=== PATIENT | female | born 1950 | race Caucasian/White ===

== ENCOUNTER 2017-04-08 09:32 | Emergency (ER) | payer MEDICARE, OTHER ==
[2017-04-08 09:35] VITALS: BMI 25.7
[2017-04-08 09:37] VITALS: BP 137/70; PULSE 65; RESP 18; TEMP 98.7; O2SAT 99
[2017-04-08] MEDS ORDERED: Sodium Chloride 0.9% 1,000 ML IV STA (10:14)
[2017-04-08 11:01] LABS: BASO % 0.8 % (0.0-2.0); EOS # 0.2 K/uL (0.0-0.7); EOS % 2.9 % (0.0-4.0); HEMATOCRIT 39.9 % (34.0-47.0); LYMPH # 2.2 K/uL (1.0-4.3); LYMPH % 34.5 % (20.0-40.0); MEAN CELL VOLUME 81.2 fl (81.0-99.0); MEAN CORPUSCULAR HEMOGLOBIN 26.6 pg (27.0-31.0); MEAN CORPUSCULAR HGB CONC 32.7 g/dL (33.0-37.0); MEAN PLATELET VOLUME 8.9 fl (7.2-11.7); MONO # 0.4 K/uL (0.0-0.8); MONO % 6.5 % (0.0-10.0); NEUT # 3.6 K/uL (1.8-7.0); NEUT % 55.3 % (50.0-75.0); RED CELL DISTRIBUTION WIDTH 14.1 % (11.5-14.5); WHITE BLOOD COUNT 6.4 K/uL (4.8-10.8)
[2017-04-08 11:06] LABS: RBC URINE 5 /hpf (0-3); URINE BACTERIA RARE (<OCC); URINE BILIRUBIN NEGATIVE (NEGATIVE); URINE BLOOD NEGATIVE (NEGATIVE); URINE COLOR YELLOW (YELLOW); URINE GLUCOSE (UA) NEG (Normal); URINE KETONE NEGATIVE (NEGATIVE); URINE LEUKOCYTE ESTERASE SMALL Leu/uL (Negative); URINE PROTEIN NEGATIVE (NEGATIVE); URINE UROBILINOGEN 0.2-1.0 mg/dL (0.2-1.0); WBC URINE 2 /hpf (0-5)
[2017-04-08 11:17] LABS: PARTIAL THROMBOPLASTIN TIME 37.3 Seconds (25.6-37.1)
[2017-04-08 11:21] LABS: ALB/GLOB RATIO 1.3 (1.0-2.1); ALKALINE PHOSPHATASE 71 U/L (38-126); ALT/SGPT 32 U/L (9-52); AST/SGOT 21 U/L (14-36); BILIRUBIN,TOTAL 0.4 mg/dl (0.2-1.3); BLOOD UREA NITROGEN 14 mg/dl (7-17); CALCIUM 9.4 mg/dL (8.4-10.2); CARBON DIOXIDE 28 mmol/L (22-30); CHLORIDE 103 mmol/L (98-107); GFR AFRICAN-AMERICAN > 60; GLUCOSE,RANDOM 117 mg/dL (65-105); LIPASE 220 U/L (23-300); POTASSIUM 3.9 MMOL/L (3.6-5.0); SODIUM 142 mmol/l (132-148); TOTAL PROTEIN 7.8 G/DL (6.3-8.2)
--- NOTE | 2017-04-08 11:22 | ED PDOC ---
HPI: Abdomen Time Seen by Provider: 04/08/17 10:01 Chief Complaint (Nursing): Abdominal Pain Chief Complaint (Provider): abdominal pain History Per: Patient History/Exam Limitations: no limitations Onset/Duration Of Symptoms: Days (x 3) Additional Complaint(s): Margarita Frank is a 66 year old female, with a previous medical history of hypertension and diabetes, who presents to the ED with complaints of abdominal pain associated with diarrhea ongoing for 3 days. Patient denies any urinary symptoms, nausea or vomiting. PMD: none provided Past Medical History Reviewed: Historical Data, Nursing Documentation, Vital Signs Vital Signs: Last Vital Signs Temp 98.7 F 04/08/17 09:35 Pulse 65 04/08/17 09:35 Resp 18 04/08/17 09:35 BP 137/70 04/08/17 09:35 Pulse Ox 99 04/10/17 17:36 - Medical History PMH: Anxiety, Asthma, HTN Denies: Chronic Kidney Disease - Surgical History Surgical History: Cholecystectomy Other surgeries: tummy tuck - Family History Family History: States: Unknown Family Hx - Home Medications Home Medications: Ambulatory Orders Medication Instructions Recorded Famotidine [Pepcid] 20 mg PO DAILY PRN #6 tab 06/12/14 Lisinopril [Lisinopril] 20 mg PO DAILY 06/12/14 Glimepiride 1 mg PO DAILY 01/19/15 Warfarin [Coumadin] 1 mg PO DAILY 01/19/15 Ondansetron [Zofran] 4 mg PO Q8H PRN #30 tab 02/08/15 Pravastatin Sodium [Pravastatin] 20 mg PO DAILY 02/08/15 levETIRAcetam [Keppra] 500 mg PO BID 02/08/15 Dicyclomine [Bentyl] 20 mg PO QID PRN #10 tab 04/08/17 Ranitidine HCl [Zantac] 150 mg PO BID #20 tablet 04/08/17 - Allergies Allergies/Adverse Reactions: Allergies Allergy/AdvReac Type Severity Reaction Status Date / Time No Known Allergies Allergy Verified 02/08/15 16:32 Review of Systems ROS Statement: Except As Marked, All Systems Reviewed And Found Negative Gastrointestinal: Positive for: Abdominal Pain, Diarrhea. Negative for: Nausea , Vomiting, Constipation Genitourinary Female: Negative for: Dysuria, Frequency, Incontinence, Hematuria Physical Exam - Reviewed Nursing Documentation Reviewed: Yes Vital Signs Reviewed: Yes - Physical Exam Appears: Positive for: Well, Non-toxic, No Acute Distress Head Exam: Positive for: ATRAUMATIC, NORMAL INSPECTION, NORMOCEPHALIC Skin: Positive for: Normal Color, Warm, DRY Eye Exam: Positive for: EOMI, Normal appearance, PERRL ENT: Positive for: Normal ENT Inspection Neck: Positive for: Normal, Painless ROM Cardiovascular/Chest: Positive for: Regular Rate, Rhythm Respiratory: Positive for: CNT, Normal Breath Sounds Gastrointestinal/Abdominal: Positive for: Bowel Sounds, Soft, Tenderness ( bilateral upper quadrant tenderness and epigastric ). Negative for: Guarding, Rebound Back: Positive for: Normal Inspection Extremity: Positive for: Normal ROM Neurologic/Psych: Positive for: Alert, Oriented - Laboratory Results Result Diagrams: 04/08/17 10:29 04/08/17 10:29 - ECG O2 Sat by Pulse Oximetry: 99 (RA) Pulse Ox Interpretation: Normal - Physician Consult Information Physician Contacted: Hudson Wong Outcome Of Conversation: Labs and imaging findings discussed, agrees with discharge home, Rx Protonix or Zantac. Medical Decision Making Medical Decision Making: Initial Impression: abdominal pain Initial Plan: * CT abd & pelvis w/ IV contrast * lipase * labs * urine dipstick * IV NS 1,000 ml at 100 ml/hr * reevaluation Accession No. : [id number] Patient Name / ID : KELLEY DENTON / [id number] Exam Date : 04/08/2017 12:12:45 ( Approved ) Study Comment : Sex / Age : F / 66Y Creator : Teddy Medeiros MD Dictator : Teddy Medeiros MD Foreign Languages Professor : Centerpuncher : Teddy Medeiros MD Approver2 : Report Date : 04/08/2017 13:09:24 My Comment : PROCEDURE: CT Abdomen and Pelvis with contrast HISTORY: BUQ pain COMPARISON: None. TECHNIQUE: Contrast dose: 95 mL Omnipaque 300 Radiation dose: Total exam DLP = 653.04 mGy-cm. This CT exam was performed using one or more of the following dose reduction techniques: Automated exposure control, adjustment of the mA and/or kV according to patient size, and/or use of iterative reconstruction technique. FINDINGS: LOWER THORAX: Unremarkable. LIVER: Normal size, contour and attenuation. There is an irregularly-shaped mass with nodular peripheral and central enhancement measuring approximately 1.6 x 2.8 by 3.1 cm. This is seen in the superior right hepatic lobe, just beneath the dome. On examination of 02/08/2015 this mass measured approximately 1.8 x 3.0 by 3.0 cm , with similar pattern of enhancement. There has been no interval change in size or morphology since the prior CT examination. Its appearance on this examination is nonspecific. This may represent a hemangioma though the nodular central enhancement is slightly atypical. No other hepatic mass is identified. There is no biliary dilatation. GALLBLADDER AND BILE DUCTS: Status post cholecystectomy PANCREAS: Unremarkable. No gross lesion or ductal dilatation. SPLEEN: From 02/08/2015. Unremarkable. ADRENALS: Unremarkable. No mass. KIDNEYS AND URETERS: Unremarkable. No hydronephrosis. No solid mass. VASCULATURE: No aortic aneurysm. Mild atheromatous narrowing of the origin of the celiac axis. The SMA and renal arteries are widely patent. The ANGY is widely patent. BOWEL: No abnormal bowel. No bowel obstruction. Stomach is not distended but grossly unremarkable. APPENDIX: Normal appendix. PERITONEUM: Unremarkable. No free fluid. No free air. LYMPH NODES: Unremarkable. No enlarged lymph nodes. BLADDER: Unremarkable. REPRODUCTIVE: Normal uterus. Small cysts in each ovary, 9 mm on the right 11 mm on the left. Consider correlation with transvaginal ultrasound examination in this postmenopausal woman. BONES: No acute fracture. OTHER FINDINGS: None. IMPRESSION: No acute abnormality. Status post cholecystectomy. 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 Small cyst in each ovary as described. Consider correlation with transvaginal pelvic ultrasound examination in this postmenopausal woman. No other significant abnormality. Accession No. : [id number] Patient Name / ID : KELLEY DENTON / [id number] Exam Date : 04/08/2017 13:28:42 ( Approved ) Study Comment : Sex / Age : F / 66Y Creator : Teddy Medeiros MD Dictator : Teddy Medeiros MD Foreign Languages Professor : Centerpuncher : Teddy Medeiros MD Approver2 : Report Date : 04/08/2017 14:22:11 My Comment : HISTORY: Postmenopausal ovarian cyst COMPARISON: None available. TECHNIQUE: Transvaginal FINDINGS: UTERUS: Measures 5.4 x 2.3 x 3.6 cm. The uterus is anteverted. No fibroid or other mass lesion seen. ENDOMETRIUM: Measures 2 mm in diameter. Unremarkable. CERVIX: No cervical abnormality identified. RIGHT OVARY: Not visualized LEFT OVARY: Not visualized FREE FLUID: No significant free fluid noted. OTHER FINDINGS: None. IMPRESSION: Unremarkable uterus. Ovaries not visualized. Scribe Attestation: Documented by Nita Brizuela, acting as a scribe for Nita Augustin MD. Provider Scribe Attestation: All medical record entries made by the Scribe were at my direction and personally dictated by me. I have reviewed the chart and agree that the record accurately reflects my personal performance of the history, physical exam, medical decision making, and the department course for this patient. I have also personally directed, reviewed, and agree with the discharge instructions and disposition. Disposition - Clinical Impression Clinical Impression: Abdominal pain in female - Disposition Referrals: Hudson Wong MD [Staff Provider] - Disposition: Routine/Home Disposition Time: 15:39 Condition: STABLE Prescriptions: Dicyclomine [Bentyl] 20 mg PO QID PRN #10 tab PRN Reason: Pain, Moderate (4-7) Ranitidine HCl [Zantac] 150 mg PO BID #20 tablet Instructions: Abdominal Pain (ED) Forms: [facility] [employer] (Greek) Print Language: TRISTANIAN
[2017-04-08] MEDS ORDERED: Iohexol 300 100 ML IJ ONE (12:11)
[2017-04-08] MEDS ORDERED: Sodium Chloride 0.9% 50 ML IV ONE (12:11)
--- NOTE | 2017-04-08 13:11 | CT ---
PROCEDURE: CT Abdomen and Pelvis with contrast HISTORY: BUQ pain COMPARISON: None. TECHNIQUE: Contrast dose: 95 mL Omnipaque 300 Radiation dose: Total exam DLP = 653.04 mGy-cm. This CT exam was performed using one or more of the following dose reduction techniques: Automated exposure control, adjustment of the mA and/or kV according to patient size, and/or use of iterative reconstruction technique. FINDINGS: LOWER THORAX: Unremarkable. LIVER: Normal size, contour and attenuation. There is an irregularly-shaped mass with nodular peripheral and central enhancement measuring approximately 1.6 x 2.8 by 3.1 cm. This is seen in the superior right hepatic lobe, just beneath the dome. On examination of 02/08/2015 this mass measured approximately 1.8 x 3.0 by 3.0 cm, with similar pattern of enhancement. There has been no interval change in size or morphology since the prior CT examination. Its appearance on this examination is nonspecific. This may represent a hemangioma though the nodular central enhancement is slightly atypical. No other hepatic mass is identified. There is no biliary dilatation. GALLBLADDER AND BILE DUCTS: Status post cholecystectomy PANCREAS: Unremarkable. No gross lesion or ductal dilatation. SPLEEN: From 02/08/2015. Unremarkable. ADRENALS: Unremarkable. No mass. KIDNEYS AND URETERS: Unremarkable. No hydronephrosis. No solid mass. VASCULATURE: No aortic aneurysm. Mild atheromatous narrowing of the origin of the celiac axis. The SMA and renal arteries are widely patent. The ANGY is widely patent. BOWEL: No abnormal bowel. No bowel obstruction. Stomach is not distended but grossly unremarkable. APPENDIX: Normal appendix. PERITONEUM: Unremarkable. No free fluid. No free air. LYMPH NODES: Unremarkable. No enlarged lymph nodes. BLADDER: Unremarkable. REPRODUCTIVE: Normal uterus. Small cysts in each ovary, 9 mm on the right 11 mm on the left. Consider correlation with transvaginal ultrasound examination in this postmenopausal woman. BONES: No acute fracture. OTHER FINDINGS: None. IMPRESSION: No acute abnormality. Status post cholecystectomy. 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 Small cyst in each ovary as described. Consider correlation with transvaginal pelvic ultrasound examination in this postmenopausal woman. No other significant abnormality.
--- NOTE | 2017-04-08 14:23 | US ---
HISTORY: Postmenopausal ovarian cyst COMPARISON: None available. TECHNIQUE: Transvaginal FINDINGS: UTERUS: Measures 5.4 x 2.3 x 3.6 cm. The uterus is anteverted. No fibroid or other mass lesion seen. ENDOMETRIUM: Measures 2 mm in diameter. Unremarkable. CERVIX: No cervical abnormality identified. RIGHT OVARY: Not visualized LEFT OVARY: Not visualized FREE FLUID: No significant free fluid noted. OTHER FINDINGS: None. IMPRESSION: Unremarkable uterus. Ovaries not visualized.
--- NOTE | 2017-04-09 08:26 | CARD ---
APPROVED REPORT EKG Measurement Heart [id number] <Conclusion> Normal sinus rhythm Low voltage QRS Borderline ECG
== END 2017-04-08 16:05 | disposition home or self-care (01) ==
LOC: H.ER 09:32
DX: R10.9 Unspecified abdominal pain (principal); N83.201 Unspecified ovarian cyst, right side; N83.202 Unspecified ovarian cyst, left side; Z78.0 Asymptomatic menopausal state; F41.9 Anxiety disorder, unspecified; I10 Essential (primary) hypertension; J45.909 Unspecified asthma, uncomplicated; Z90.49 Acquired absence of other specified parts of digestive tract
CPT/HCPCS: 74177; 76830; 80053; 81003; 83690; 85025; 85610; 85730; 93005; 99283; J7040; Q9967

== ENCOUNTER 2017-09-01 13:40 | Emergency (ER) | payer MEDICARE, OTHER ==
[2017-09-01 13:40] VITALS: BMI 25.7
[2017-09-01 13:49] VITALS: BP 136/80; PULSE 77; RESP 16; TEMP 98.2; O2SAT 96
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
--- NOTE | 2017-09-01 15:38 | CT ---
PROCEDURE: CT HEAD WITHOUT CONTRAST. HISTORY: s/p fall COMPARISON: CT angiography study 06/11/2015, CT head without contrast 01/19/2015 TECHNIQUE: Axial computed tomography images were obtained through the head/brain without intravenous contrast. Radiation dose: Total exam DLP = 816 mGy-cm. This CT exam was performed using one or more of the following dose reduction techniques: Automated exposure control, adjustment of the mA and/or kV according to patient size, and/or use of iterative reconstruction technique. FINDINGS: HEMORRHAGE: No interval intracranial hemorrhage. BRAIN: No interval mass effect or edema. The right temporal parietal hypodensity without mass effect is compatible with chronic encephalomalacia changes given the serial changes noted with earlier studies. No interval contiguous current extra-axial blood here appreciated VENTRICLES: Unremarkable. No hydrocephalus. CALVARIUM: The right sub occipital/occipital craniectomy and cranioplasty changes are similar PARANASAL SINUSES: The right frontal air cell opacification is unchanged since 06/11/2015 fairly retention cyst is a consideration. No expansion of the regional osseous anatomy here noted. MASTOID AIR CELLS: Unremarkable as visualized. No inflammatory changes. OTHER FINDINGS: None. IMPRESSION: No interval hemorrhage or mass effect. Right sided postsurgical changes. Stable right sided encephalomalacia changes.
== END 2017-09-01 16:14 | disposition home or self-care (01) ==
LOC: H.ER 13:40
DX: S09.90XA Unspecified injury of head, initial encounter (principal); W22.8XXA Striking against or struck by other objects, initial encounter; Y92.89 Other specified places as the place of occurrence of the external cause; E11.9 Type 2 diabetes mellitus without complications; I10 Essential (primary) hypertension; Z79.01 Long term (current) use of anticoagulants

== ENCOUNTER 2017-10-17 11:58 | Emergency (ER) | payer MEDICARE, OTHER ==
[2017-10-17 11:58] VITALS: BMI 25.7
[2017-10-17] MEDS ORDERED: Sodium Chloride 0.9% 1,000 ML IV STA (13:19)
[2017-10-17 13:48] LABS: BASO # 0.1 K/uL (0.0-0.2); BASO % 1.2 % (0.0-2.0); EOS # 0.2 K/uL (0.0-0.7); EOS % 2.4 % (0.0-4.0); HEMOGLOBIN 13.5 g/dL (12.0-16.0); MEAN CELL VOLUME 82.5 fl (81.0-99.0); MEAN CORPUSCULAR HEMOGLOBIN 26.8 pg (27.0-31.0); MEAN CORPUSCULAR HGB CONC 32.5 g/dL (33.0-37.0); MEAN PLATELET VOLUME 8.9 fl (7.2-11.7); MONO # 0.4 K/uL (0.0-0.8); NEUT # 3.7 K/uL (1.8-7.0); NEUT % 58.4 % (50.0-75.0); NRBC % 0.1 % (0.0-0.0); RBC 5.04 Mil/uL (3.80-5.20); RED CELL DISTRIBUTION WIDTH 14.2 % (11.5-14.5); WHITE BLOOD COUNT 6.3 K/uL (4.8-10.8)
[2017-10-17 13:57] LABS: INR 2.7 (0.9-1.2); PARTIAL THROMBOPLASTIN TIME 46.2 Seconds (25.6-37.1); PROTHROMBIN TIME 30.1 Seconds (9.8-13.1)
[2017-10-17 14:00] LABS: BLOOD UREA NITROGEN 17 mg/dl (7-17); GFR AFRICAN-AMERICAN > 60; GFR NON-AFRICAN AMERICAN > 60
[2017-10-17 14:01] LABS: ALB/GLOB RATIO 1.1 (1.0-2.1); ALBUMIN 4.1 g/dL (3.5-5.0); ALT/SGPT 42 U/L (9-52); AST/SGOT 20 U/L (14-36); LIPASE 218 U/L (23-300)
--- NOTE | 2017-10-17 14:31 | CT ---
PROCEDURE: CT HEAD WITHOUT CONTRAST. HISTORY: Right right sided headache hx of brain tumor/GUARD CHIEF COMPARISON: 09/01/2017. TECHNIQUE: Axial computed tomography images were obtained through the head/brain without intravenous contrast. Radiation dose: Total exam DLP = 652.22 mGy-cm. This CT exam was performed using one or more of the following dose reduction techniques: Automated exposure control, adjustment of the mA and/or kV according to patient size, and/or use of iterative reconstruction technique. FINDINGS: HEMORRHAGE: No intracranial hemorrhage. BRAIN: There is redemonstration of focal cystic encephalomalacia in the right temporoparietal lobe. Bland-white matter differentiation is preserved. There is no mass, mass effect or abnormal extra-axial fluid collection. There is no territorial infarction. VENTRICLES: The ventricles are normal in size, shape and configuration. CALVARIUM: Status post right occipital craniectomy and cranioplasty. PARANASAL SINUSES: There is complete opacification of the right frontal sinus and mild mucosal thickening in the ethmoid air cells. There is polypoid mucosal thickening in the mid left maxillary sinus and aerosolized secretions in the right maxillary and sphenoid sinuses. MASTOID AIR CELLS: Predominantly clear. OTHER FINDINGS: None. IMPRESSION: No acute intracranial abnormality. Status post right occipital craniectomy and cranioplasty. Stable appearance of focal encephalomalacia in the right parieto-occipital lobe. Chronic pansinusitis, aerosolized secretions in the right maxillary and sphenoid sinus may represent superimposed acute sinusitis in the appropriate clinical setting.
--- NOTE | 2017-10-17 15:52 | ED PDOC ---
HPI: Headache Time Seen by Provider: 10/17/17 12:31 Chief Complaint (Nursing): Headache Chief Complaint (Provider): Headache History Per: Patient Onset/Duration Of Symptoms: Days (x4 days) Current Symptoms Are (Timing): Still Present Associated Symptoms: denies: Photophobia, Vomiting, Extremity Weakness Additional Complaint(s): 66 y/o female presents to the ED complaining of sinus headache x 4 days. Reports that headache is constant and is mostly on the right side of her face. Patient is also complaining of epigastric pain everytime she eats. Reports history of brain tumor many years ago that was removed and had craniotomy. 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 Denies fever, vomiting, diarrhea, photophobia, numbness, weakness or any further medical complaints. PMD: MD Judith Past Medical History Reviewed: Historical Data, Nursing Documentation, Vital Signs Vital Signs: Last Vital Signs Temp 98.6 F 10/17/17 12:16 Pulse 71 10/17/17 12:16 Resp 17 10/17/17 12:16 BP 139/79 10/17/17 12:16 Pulse Ox 96 10/17/17 12:16 - Medical History PMH: Anxiety, Asthma, Diabetes, Gastritis, HTN Denies: Chronic Kidney Disease - Surgical History Surgical History: Cholecystectomy - Family History Family History: States: Unknown Family Hx - Social History Current smoker - smoking cessation education provided: No (Never Smoked) Alcohol: None Drugs: Denies - Home Medications Home Medications: Ambulatory Orders Medication Instructions Recorded Famotidine [Pepcid] 20 mg PO DAILY PRN #6 tab 06/12/14 Lisinopril [Lisinopril] 20 mg PO DAILY 06/12/14 Glimepiride 1 mg PO DAILY 01/19/15 Warfarin [Coumadin] 1 mg PO DAILY 01/19/15 Ondansetron [Zofran] 4 mg PO Q8H PRN #30 tab 02/08/15 Pravastatin Sodium [Pravastatin] 20 mg PO DAILY 02/08/15 levETIRAcetam [Keppra] 500 mg PO BID 02/08/15 Dicyclomine [Bentyl] 20 mg PO QID PRN #10 tab 04/08/17 Ranitidine HCl [Zantac] 150 mg PO BID #20 tablet 04/08/17 Amoxicillin/Clavulanate [Augmentin 1 tab PO BID #20 tab 10/17/17 875 MG-125 MG] - Allergies Allergies/Adverse Reactions: Allergies Allergy/AdvReac Type Severity Reaction Status Date / Time No Known Allergies Allergy Verified 09/01/17 13:43 Review of Systems ROS Statement: Except As Marked, All Systems Reviewed And Found Negative (As per HPI, otherwise negative) Constitutional: Negative for: Fever Eyes: Negative for: Other (Photophobia) Gastrointestinal: Positive for: Abdominal Pain (Epigastric pain). Negative for : Vomiting, Diarrhea Neurological: Positive for: Headache. Negative for: Weakness, Numbness Physical Exam - Reviewed Nursing Documentation Reviewed: Yes Vital Signs Reviewed: Yes - Physical Exam Appears: Positive for: Non-toxic, No Acute Distress Head Exam: Positive for: ATRAUMATIC, NORMAL INSPECTION, NORMOCEPHALIC Skin: Positive for: Normal Color, Warm, Dry Eye Exam: Positive for: EOMI, Normal appearance, PERRL ENT: Positive for: Normal ENT Inspection Neck: Positive for: Normal, Painless ROM, Supple Cardiovascular/Chest: Positive for: Regular Rate, Rhythm. Negative for: Murmur Respiratory: Positive for: Normal Breath Sounds. Negative for: Accessory Muscle Use, Respiratory Distress Gastrointestinal/Abdominal: Positive for: Normal Exam, Soft. Negative for: Tenderness Back: Positive for: Normal Inspection Extremity: Positive for: Normal ROM. 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 Negative for: Motor/Sensory Deficits - Laboratory Results Result Diagrams: 10/17/17 13:29 10/17/17 13:29 - ECG O2 Sat by Pulse Oximetry: 96 (RA) Pulse Ox Interpretation: Normal - Progress Re-evaluation Time: 16:10 Condition: Re-examined, Improved Medical Decision Making Medical Decision Making: Time: 13:18 Initial Impression: Headache and abdominal pain Differential diagnosis: Intracranial bleeding, brain tumor, acute sinusitis, unlikely sinus thrombosis since patient is on coumadin; pancreatitis, gastritis Plan: CT head w/o contrast CMP Lipase CBC w/ differential ESR PTT Prothrombin Time Sodium chloride 1L IV Reglan 10mg IVP Toradol 15mg IVP Reevaluation Time: 14:[address] FINDINGS: HEMORRHAGE: No intracranial hemorrhage. BRAIN: There is redemonstration of focal cystic encephalomalacia in the right temporoparietal lobe. Bland-white matter differentiation is preserved. There is no mass, mass effect or abnormal extra-axial fluid collection. There is no territorial infarction. VENTRICLES: The ventricles are normal in size, shape and configuration. CALVARIUM: Status post right occipital craniectomy and cranioplasty. PARANASAL SINUSES: There is complete opacification of the right frontal sinus and mild mucosal thickening in the ethmoid air cells. There is polypoid mucosal thickening in the mid left maxillary sinus and aerosolized secretions in the right maxillary and sphenoid sinuses. MASTOID AIR CELLS: Predominantly clear. OTHER FINDINGS: None. IMPRESSION: No acute intracranial abnormality. Status post right occipital craniectomy and cranioplasty. Stable appearance of focal encephalomalacia in the right parieto-occipital lobe. Chronic pansinusitis, aerosolized secretions in the right maxillary and sphenoid sinus may represent superimposed acute sinusitis in the appropriate clinical setting. [address] Case was discussed with Dr. Keane and agrees that patient most likely has acute sinusitis. --Dr. Keane asked to follow up with him as an out patient for further treatment. Scribe Attestation: Documented by Loebardo Ken acting as a scribe for Will Johnston MD. Scribe Attestation: All medical record entries made by the Scribe were at my direction and personally dictated by me. I have reviewed the chart and agree that the record accurately reflects my personal performance of the history, physical exam, medical decision making, and the department course for this patient. I have also personally directed, reviewed, and agree with the discharge instructions and disposition. Disposition - Clinical Impression Clinical Impression: Acute headache, Sinusitis, acute - Patient ED Disposition Is Patient to be Admitted: No Doctor Will See Patient In The: Office Counseled Patient/Family Regarding: Studies Performed, Diagnosis, Need For Followup - Disposition Referrals: Hardeep Keane MD [Medical Doctor] - Disposition: Routine/Home Disposition Time: 16:10 Condition: GOOD Additional Instructions: Take your medications as instructed. Take tylenol and sudafed for sinus pain. Follow up with your PCP in 2-3 days. Prescriptions: Amoxicillin/Clavulanate [Augmentin 875 MG-125 MG] 1 tab PO BID #20 tab Instructions: Sinusitis in Adults, Acute Headache (ED) Forms: [employer] (Rwandan)
[2017-10-17 15:59] VITALS: BP 129/73; PULSE 76; RESP 18; TEMP 98
[2017-10-17 16:04] VITALS: O2SAT 96
== END 2017-10-17 16:51 | disposition home or self-care (01) ==
LOC: H.ER 11:58
DX: R51 Headache (principal); J01.90 Acute sinusitis, unspecified; E11.9 Type 2 diabetes mellitus without complications; I10 Essential (primary) hypertension; Z79.01 Long term (current) use of anticoagulants
CPT/HCPCS: 70450; 80053; 83690; 85025; 85610; 85651; 85730; 96374; 96375; 99285; J1885; J2765; J7040

== ENCOUNTER 2018-03-13 01:16 | Emergency (ER) | payer MEDICARE, OTHER ==
[2018-03-13 01:57] VITALS: BMI 24.8
[2018-03-13 02:03] VITALS: O2SAT 98
[2018-03-13] MEDS ORDERED: Iohexol 240 (50 ml) PO ONE (02:39)
[2018-03-13] MEDS ORDERED: Morphine 4 MG/ML VIAL IVP STA (02:39)
--- NOTE | 2018-03-13 02:44 | ED PDOC ---
HPI: Abdomen Time Seen by Provider: 03/13/18 02:02 Chief Complaint (Nursing): Abdominal Pain Chief Complaint (Provider): Abdominal Pain History Per: Patient History/Exam Limitations: no limitations Onset/Duration Of Symptoms: Hrs (x7) Current Symptoms Are (Timing): Still Present Location Of Pain/Discomfort: Diffuse Associated Symptoms: Back Pain (lower). denies: Fever, Nausea, Vomiting, Diarrhea, Urinary Symptoms Additional Complaint(s): 67 year old female presents to the ED complaining of constant diffuse abdominal pain radiating to the lower back since 21:00. Patient denies fever, nausea, diarrhea, vomiting, bloody stool, and urinary problems. PMD: Dr. Wong Past Medical History Reviewed: Historical Data, Nursing Documentation, Vital Signs Vital Signs: Last Vital Signs Temp 98 F 03/13/18 12:50 Pulse 78 03/13/18 12:50 Resp 20 03/13/18 12:50 BP 150/80 03/13/18 12:50 Pulse Ox 98 03/13/18 12:50 - Medical History PMH: Anxiety, Asthma, Diabetes, Gastritis, HTN Denies: Chronic Kidney Disease Other PMH: CVST - Surgical History Surgical History: Cholecystectomy - Family History Family History: States: Unknown Family Hx - Home Medications Home Medications: Ambulatory Orders Medication Instructions Recorded Famotidine [Pepcid] 20 mg PO DAILY PRN #6 tab 06/12/14 Lisinopril [Lisinopril] 20 mg PO DAILY 06/12/14 Glimepiride 1 mg PO DAILY 01/19/15 Warfarin [Coumadin] 1 mg PO DAILY 01/19/15 Ondansetron [Zofran] 4 mg PO Q8H PRN #30 tab 02/08/15 Pravastatin Sodium [Pravastatin] 20 mg PO DAILY 02/08/15 levETIRAcetam [Keppra] 500 mg PO BID 02/08/15 Dicyclomine [Bentyl] 20 mg PO QID PRN #10 tab 04/08/17 Ranitidine HCl [Zantac] 150 mg PO BID #20 tablet 04/08/17 Amoxicillin/Clavulanate [Augmentin 1 tab PO BID #20 tab 10/17/17 875 MG-125 MG] - Allergies Allergies/Adverse Reactions: Allergies Allergy/AdvReac Type Severity Reaction Status Date / Time No Known Allergies Allergy Verified 03/13/18 01:56 Review of Systems ROS Statement: Except As Marked, All Systems Reviewed And Found Negative Constitutional: Negative for: Fever Gastrointestinal: Positive for: Abdominal Pain (diffuse). Negative for: Nausea , Vomiting, Diarrhea, Hematemesis Genitourinary Female: Negative for: Dysuria, Hematuria, Vaginal Discharge, Vaginal Bleeding Musculoskeletal: Positive for: Back Pain (lower) Physical Exam - Reviewed Nursing Documentation Reviewed: Yes Vital Signs Reviewed: Yes - Physical Exam Appears: Positive for: No Acute Distress, Uncomfortable Head Exam: Positive for: ATRAUMATIC, NORMOCEPHALIC Skin: Positive for: Normal Color, Warm, Dry Eye Exam: Positive for: Normal appearance Neck: Positive for: Normal, Painless ROM Cardiovascular/Chest: Positive for: Regular Rate, Rhythm. Negative for: Murmur Respiratory: Positive for: Normal Breath Sounds. Negative for: Wheezing, Respiratory Distress Gastrointestinal/Abdominal: Positive for: Tenderness (Mild diffuse tenderness). Negative for: Distended, Hernia Extremity: Positive for: Normal ROM Neurologic/Psych: Positive for: Alert, Oriented (x3). Negative for: Motor/ Sensory Deficits - Laboratory Results Result Diagrams: 03/13/18 02:50 03/13/18 02:50 - ECG O2 Sat by Pulse Oximetry: 98 (RA) Pulse Ox Interpretation: Normal - Progress Re-evaluation Time: 12:45 Condition: Re-examined, Improved Medical Decision Making Medical Decision Making: Initial Impression: Diffuse abdominal pain Differential includes acute gastritis, pancreatitis, small bowel obstruction, appendicitis, mesenteric ischemia, UTI, colitis Initial Plan: --VBG shock panel --CT abd/pelvis --ECG --CMP --Lipase --Troponin --ED urine dipstick --CBC --Morphine 4mg IV --Iohexol 50mL PO 06:05 CT abd/pelvis FINDINGS: Lung bases: Intact. No mass. No consolidation. ABDOMEN: Liver: Irregular hepatic hypodensity with central and peripheral nodular enhancement in the right lobe of the liver underneath the dome measuring approximately 2.0 x 2.6 cm on axial series 2 image 1 similar to the previous exam. Hepatic hypodensity from fatty infiltrates. Gallbladder and bile ducts: Cholecystectomy. No ductal dilation. Pancreas: No mass. No ductal dilation. Spleen: No splenomegaly. Adrenals: No mass. Kidneys and ureters: No solid mass. No hydronephrosis. Stomach and bowel: No obstruction. No mucosal thickening. PELVIS: Appendix: No findings to suggest acute appendicitis. Bladder: No mass. Reproductive: Stable bilateral ovarian cysts, 1 cm the right and 1.3 cm on the left. Uterus midline. ABDOMEN and PELVIS: Intraperitoneal space: No free air. No significant fluid collection. Bones/joints: No acute fracture. No dislocation. Soft tissues: No radiopaque foreign body. Vasculature: No aortic aneurysm. Lymph nodes: No enlarged lymph nodes. IMPRESSION: 1. No acute inflammatory changes in abdomen or pelvis. 2. Stable hepatic lesion likely hemangioma. 3. Stable bilateral small ovarian cysts. Scribe Attestation: Documented by Francisco Shea acting as a scribe for Will Johnston MD. Provider Scribe Attestation: All medical record entries made by the Scribe were at my direction and personally dictated by me. I have reviewed the chart and agree that the record accurately reflects my personal performance of the history, physical exam, medical decision making, and the department course for this patient. I have also personally directed, reviewed, and agree with the discharge instructions and disposition. Disposition - Clinical Impression Clinical Impression: Abdominal pain, Back pain - Patient ED Disposition Is Patient to be Admitted: No Doctor Will See Patient In The: Office Counseled Patient/Family Regarding: Studies Performed, Diagnosis - Disposition Referrals: [facility] [Outside] Disposition: Routine/Home Disposition Time: 12:50 Condition: GOOD Additional Instructions: BERTIN BENSON, thank you for letting us take care of you today. Your provider was Will Johnston MD and you were treated for ABD PAIN/BACK PAIN. The emergency medical care you received today was directed at your acute symptoms. If you were prescribed any medication, please fill it and take as directed. It may take several days for your symptoms to resolve. Return to the Emergency Department if your symptoms worsen, do not improve, or if you have any other problems. Please contact your doctor or call one of the physicians/clinics you have been referred to that are listed on the Patient Visit Information form that is included in your discharge packet. Bring any paperwork you were given at discharge with you along with any medications you are taking to your follow up visit. Our treatment cannot replace ongoing medical care by a primary care provider outside of the emergency department. Thank you for allowing the [facility] team to be part of your care today. If you had an X-Ray or CT scan: A Radiologist will review the ED reading if any change in treatment is needed we will contact you. If you had a blood, urine, or wound culture: It will take several days for the results, if any change in treatment is needed we will contact you. If you had an STI test: It will take 48 hours for the results. Please call after 1 week if you have not heard back. Instructions: Low Back Pain in Adults, Stomach Ache and Stomach Upset Print Language: [id number]
[2018-03-13] MEDS ORDERED: Iohexol 240 (50 ml) ONE (02:51)
[2018-03-13] MEDS ORDERED: Morphine 4 MG/ML VIAL ONE (02:51)
[2018-03-13 03:06] LABS: VENOUS BLOOD GAS PCO2 48 mmHg (40-60); VENOUS BLOOD GAS PO2 26 mm/Hg (30-55)
[2018-03-13 03:07] LABS: BASO # 0.1 K/uL (0.0-0.2); BASO % 0.9 % (0.0-2.0); EOS # 0.2 K/uL (0.0-0.7); EOS % 3.4 % (0.0-4.0); HEMOGLOBIN 12.9 g/dL (12.0-16.0); LYMPH # 2.2 K/uL (1.0-4.3); LYMPH % 35.5 % (20.0-40.0); MEAN CELL VOLUME 80.5 fl (81.0-99.0); MEAN CORPUSCULAR HGB CONC 33.5 g/dL (33.0-37.0); MEAN PLATELET VOLUME 8.8 fl (7.2-11.7); MONO # 0.4 K/uL (0.0-0.8); MONO % 6.6 % (0.0-10.0); NEUT # 3.3 K/uL (1.8-7.0); NEUT % 53.6 % (50.0-75.0); RBC 4.76 Mil/uL (3.80-5.20); RED CELL DISTRIBUTION WIDTH 13.9 % (11.5-14.5); WHITE BLOOD COUNT 6.2 K/uL (4.8-10.8)
[2018-03-13 03:14] LABS: INR 2.4
[2018-03-13 03:17] LABS: ALB/GLOB RATIO 1.2 (1.0-2.1); ALBUMIN 4.1 g/dL (3.5-5.0); ALT/SGPT 33 U/L (9-52); AST/SGOT 21 U/L (14-36); BLOOD UREA NITROGEN 13 mg/dl (7-17); CALCIUM 9.9 mg/dL (8.4-10.2); GFR NON-AFRICAN AMERICAN > 60; LIPASE 245 U/L (23-300); PARTIAL THROMBOPLASTIN TIME 43.1 Seconds (25.6-37.1)
[2018-03-13] MEDS ORDERED: Iohexol 300 100 ML IJ ONE (05:04)
[2018-03-13] MEDS ORDERED: Sodium Chloride 0.9% 50 ML IV ONE (05:04)
--- NOTE | 2018-03-13 06:06 | CT ---
EXAM: CT Abdomen and Pelvis With Intravenous Contrast CLINICAL HISTORY: 67 years old, female; Pain; Abdominal pain TECHNIQUE: Axial computed tomography images of the abdomen and pelvis with intravenous contrast. All CT scans at this facility use at least one of these dose optimization techniques: automated exposure control; mA and/or kV adjustment per patient size (includes targeted exams where dose is matched to clinical indication); or iterative reconstruction. Coronal and sagittal reformatted images were created and reviewed. CONTRAST: 95 mL of OMNIPAQUE-300 administered intravenously. COMPARISON: CT ABD PELVIS IV CONTRAST ONLY 04/08/2017 12:12 PM FINDINGS: Lung bases: Intact. No mass. No consolidation. ABDOMEN: Liver: Irregular hepatic hypodensity with central and peripheral nodular enhancement in the right lobe of the liver underneath the dome measuring approximately 2.0 x 2.6 cm on axial series 2 image 1 similar to the previous exam. Hepatic hypodensity from fatty infiltrates. Gallbladder and bile ducts: Cholecystectomy. No ductal dilation. Pancreas: No mass. No ductal dilation. Spleen: No splenomegaly. Adrenals: No mass. Kidneys and ureters: No solid mass. No hydronephrosis. Stomach and bowel: No obstruction. No mucosal thickening. PELVIS: Appendix: No findings to suggest acute appendicitis. Bladder: No mass. Reproductive: Stable bilateral ovarian cysts, 1 cm the right and 1.3 cm on the left. Uterus midline. ABDOMEN and PELVIS: Intraperitoneal space: No free air. No significant fluid collection. Bones/joints: No acute fracture. No dislocation. Soft tissues: No radiopaque foreign body. Vasculature: No aortic aneurysm. Lymph nodes: No enlarged lymph nodes. IMPRESSION: 1. No acute inflammatory changes in abdomen or pelvis. 2. Stable hepatic lesion likely hemangioma. 3. Stable bilateral small ovarian cysts.
--- NOTE | 2018-03-13 12:08 | CARD ---
APPROVED REPORT Date of service: 03/13/2018 EKG Measurement Heart [id number] <Conclusion> Sinus bradycardia Nonspecific T wave abnormality Abnormal ECG
[2018-03-13 12:51] VITALS: BP 150/80; PULSE 78; RESP 20; TEMP 98
== END 2018-03-13 07:01 | disposition home or self-care (01) ==
LOC: H.ER 01:16
DX: R10.9 Unspecified abdominal pain (principal); M54.5 Low back pain; K76.0 Fatty (change of) liver, not elsewhere classified; N83.201 Unspecified ovarian cyst, right side; N83.202 Unspecified ovarian cyst, left side; E11.9 Type 2 diabetes mellitus without complications; I10 Essential (primary) hypertension; Z79.01 Long term (current) use of anticoagulants
CPT/HCPCS: 74177; 80053; 82803; 83690; 84484; 85025; 85610; 85730; 93005; 96374; 99282; J1885; Q9966; Q9967

== ENCOUNTER 2018-11-13 02:38 | Emergency (ER) | payer OTHER ==
[2018-11-13 02:39] VITALS: BMI 24.8
--- NOTE | 2018-11-13 03:20 | ED PDOC ---
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 Patient states that she is vigilant about taking her blood pressure, states she took her blood pressure as a routine measure and saw that her systolitc was above 170, states she became dizzy and then came to the E.D. for further evaluation. Denies headache, chest pain, shortenss of breath, abdominal pain, or any other symptoms currently. Patient states she feels well. PMD: Dr. oWng Past Medical History Reviewed: Historical Data, Nursing Documentation Vital Signs: Last Vital Signs Temp 98.3 F 11/13/18 02:44 Pulse 72 11/13/18 02:44 Resp 16 11/13/18 02:44 BP 144/82 11/13/18 02:44 Pulse Ox 98 11/13/18 02:44 Primary Care Provider: Hudson Wong - Medical History PMH: Anxiety, Asthma, Diabetes, Gastritis, HTN Denies: Chronic Kidney Disease - Surgical History Surgical History: Cholecystectomy - Family History Family History: States: Unknown Family Hx - Home Medications Home Medications: Ambulatory Orders Medication Instructions Recorded Famotidine [Pepcid] 20 mg PO DAILY PRN #6 tab 06/12/14 Lisinopril 20 mg PO DAILY 06/12/14 Glimepiride 1 mg PO DAILY 01/19/15 Warfarin [Coumadin] 1 mg PO DAILY 01/19/15 Ondansetron [Zofran] 4 mg PO Q8H PRN #30 tab 02/08/15 Pravastatin Sodium [Pravastatin] 20 mg PO DAILY 02/08/15 levETIRAcetam [Keppra] 500 mg PO BID 02/08/15 Dicyclomine [Bentyl] 20 mg PO QID PRN #10 tab 04/08/17 Ranitidine HCl [Zantac] 150 mg PO BID #20 tablet 04/08/17 Amoxicillin/Clavulanate [Augmentin 1 tab PO BID #20 tab 10/17/17 875 MG-125 MG] - Allergies Allergies/Adverse Reactions: Allergies Allergy/AdvReac Type Severity Reaction Status Date / Time No Known Allergies Allergy Verified 03/13/18 01:56 Review of Systems ROS Statement: Except As Marked, All Systems Reviewed And Found Negative Physical Exam - Reviewed Nursing Documentation Reviewed: Yes Vital Signs Reviewed: Yes - Physical Exam Appears: Positive for: Well, Non-toxic, No Acute Distress Head Exam: Positive for: ATRAUMATIC, NORMAL INSPECTION, NORMOCEPHALIC Skin: Positive for: Normal Color, Warm, DRY Eye Exam: Positive for: EOMI, Normal appearance, PERRL ENT: Positive for: Normal ENT Inspection Neck: Positive for: Normal, Painless ROM Cardiovascular/Chest: Positive for: Regular Rate, Rhythm Respiratory: Positive for: CNT, Normal Breath Sounds Gastrointestinal/Abdominal: Positive for: Normal Exam, Soft Back: Positive for: Normal Inspection Extremity: Positive for: Normal ROM Neurological/Psych: Positive for: Awake, Alert, Normal Tone. Negative for: Motor/Sensory Deficits - ECG O2 Sat by Pulse Oximetry: 98 Pulse Ox Interpretation: Normal Medical Decision Making Medical Decision Making: Resolved elevated BP Well appearing Repeated BP's are normal Advised patient to followup with PMD No acute medical intervention necessary at this time Disposition - Clinical Impression Clinical Impression: Normal exam - Patient ED Disposition Is Patient to be Admitted: No - Disposition Referrals: Hudson Wong MD [Staff Provider] - Disposition: Routine/Home Disposition Time: 03:19 Condition: GOOD Instructions: General (DC) Forms: [facility] (Micronesian) Print Language: NEPALESE
[2018-11-13 03:40] VITALS: BP 123/78; PULSE 75; RESP 15; TEMP 98
[2018-11-13 05:13] VITALS: O2SAT 98
== END 2018-11-13 03:41 | disposition home or self-care (01) ==
LOC: H.ER 02:38
DX: Z00.00 Encounter for general adult medical examination without abnormal findings (principal); E11.9 Type 2 diabetes mellitus without complications; Z79.01 Long term (current) use of anticoagulants